=== PATIENT | male | born 1945 | race Two or more races ===

== ENCOUNTER 2023-11-17 14:03 | Emergency (ER) | payer MEDICAID, MEDICARE, OTHER ==
[~2023-11-17] VITALS: Ht 180.3 cm; Wt 95.0 kg
[~2023-11-17 14:03] MED LIST: AMOX250L PO; FLUC10SU2 PO; GEMF600T89 PO; INSLAN SQ; METF-1211 PO; METF-444 PO; NITR100C PO; OMEP40CA21 PO; RANI15SY2 PO; SULF1TAB42 PO; TAMS-1 PO; [UNRECOGNIZED DRUG - CODE] PO; [UNRECOGNIZED DRUG - OTHER] PO
[2023-11-17 14:09] VITALS: BP 142/65; PULSE 74; RESP 18; TEMP 98.2
[2023-11-17] MEDS ORDERED: LIDOCAINE 1% 10 ML VIAL ID ONE (15:00)
== END 2023-11-17 16:55 | disposition home or self-care (01) ==
LOC: EMS 14:10
DX: S01.111A Laceration without foreign body of right eyelid and periocular area, initial encounter (principal); E11.9 Type 2 diabetes mellitus without complications; I10 Essential (primary) hypertension; K29.70 Gastritis, unspecified, without bleeding; W01.0XXA Fall on same level from slipping, tripping and stumbling without subsequent striking against object, initial encounter; Y93.89 Activity, other specified; Y92.89 Other specified places as the place of occurrence of the external cause; Y99.8 Other external cause status
CPT/HCPCS: 99284; 70450; 70486; 72125; J3490